=== PATIENT | male | born 1945 | race Caucasian/White ===

== ENCOUNTER → 2016-10-10 | Outpatient (CLI) | payer MEDICARE | END | disposition home or self-care (01) | LOC: LAB 15:24 | PROVIDERS: ATTEND Urology | DX: Z12.5 Encounter for screening for malignant neoplasm of prostate (principal); N40.0 Benign prostatic hyperplasia without lower urinary tract symptoms | CPT/HCPCS: G0103 ==

== ENCOUNTER 2019-08-23 08:15 | Emergency (ER) | payer MEDICARE ==
[~2019-08-23] VITALS: Ht 170.2 cm; Wt 87.8 kg
[2019-08-23] MEDS ORDERED: TETRACAINE 0.5% OPHTH SOLUTION 4ML BOTTLE. ONE (08:44)
[2019-08-23] MEDS ORDERED: FLUORESCEIN 1MG EYE STRIP. ONE (08:44)
[2019-08-23] MEDS ORDERED: FLUORESCEIN 1MG EYE STRIP. OU ONE (08:45)
[2019-08-23] MEDS ORDERED: TETRACAINE 0.5% OPHTH SOLUTION 4ML BOTTLE. OU ONE (08:45)
[2019-08-23] MEDS ORDERED: ERYT1OIN6 OP (08:53)
[2019-08-23] MEDS ORDERED: NAPR-695 PO (08:53)
--- NOTE | 2019-08-23 08:53 | PHYS DOC ---
Past History Past Medical History: Diabetes, Other Additional Past Medical Histor: melanoma Past Surgical History: Tonsillectomy, Other Additional Past Surgical Histo: skin cancer operation Smoking: Quit Greater Than 1 Year Alcohol Use: Occasionally Adult General Chief Complaint Chief Complaint: EYE PROBLEMS HPI HPI Patient is a 73-year-old male who presents with bilateral eye pain began approximately at midnight last night. 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 He states over the past that he was using an electrical welding shield and was not turning on appropriately. He began experiencing a bilateral eye pain left more than right woken from sleep early this morning. Currently he says that his vision is blurry or than normal. He has had what he describes as an "arc burn" approximately 2-3 times in the past. This is consistent with previous injuries. Denies any increase in lacrimation or purulent drainage. Mild photophobia no pain with extraocular movements. No diplopia. 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 Review of Systems Review of Systems Constitutional: Denies fever or chills Eyes: Reports bilateral eye redness, blurriness, photophobia and pain. Denies drainage. HENT: Denies nasal congestion or sore throat Respiratory: Denies cough or shortness of breath Cardiovascular: Denies chest pain or palpitations Neurologic: Denies headache, focal weakness or sensory changes Complete systems were reviewed and found to be within normal limits, except as documented in this note. Current Medications Current Medications Current Medications Medications (Trade) Dose Ordered Sig/Miley Start Time Stop Time Status Last Admin Dose Admin Erythromycin (Romycin) 0.25 inch 1X ONCE 08/23/19 09:00 08/23/19 09:01 UNV Fluorescein Sodium (Ful-Letty 1mg) 1 strip STK-MED ONCE 08/23/19 08:44 08/23/19 08:45 DC Tetracaine HCl (Tetracaine) 2 drop 1X ONCE 08/23/19 08:45 08/23/19 08:47 DC Allergies Allergies Allergies Coded Allergies Type Severity Reaction Last Updated Verified No Known Drug Allergies 08/23/19 No Physical Exam Physical Exam Constitutional: Well developed, well nourished, no acute distress, non-toxic appearance HENT: Normocephalic, atraumatic, oropharynx moist Eyes: PERRL, EOMI, conjunctival injection bilaterally, no discharge, no fluorescein uptake, no retained foreign body noted Cardiovascular: Heart rate normal, regular rhythm Lungs & Thorax: Bilateral breath sounds clear to auscultation, no wheezing Abdomen: Soft, no tenderness Neurologic: Alert and oriented X 3,no focal deficits noted Psychologic: Affect normal, judgment normal Current Patient Data Vital Signs Vital Signs Date Time Temp Pulse Resp B/P (MAP) Pulse Ox O2 Delivery O2 Flow Rate FiO2 08/23/19 08:32 98.0 58 18 152/68 (96) 97 Room Air EKG EKG [] Radiology/Procedures Radiology/Procedures [] Course & Med Decision Making Course & Med Decision Making Patient is 73-year-old male who presents to the ED with bilateral eye pain, b lurriness, and redness that began yesterday evening after he was welding with a failed welders mask. He has had multiple episodes of ultraviolet keratitis past and feels this is similar to those injuries today. Patient describes eye pain bilaterally left worse than right. Exam shows however visual acuity is better left than the right. Patient does describe some visual impairment at baseline with right eye correction being worse than left. Currently states that his vision is simply more blurry than normal. Ocular exam with fluorescein staining showed no evidence of abrasion, ulceration, punctate lesions over bilateral conjunctivitis presents and given patient's recent history suspect that he will be keratitis is most likely. We will discharge patient with prescription for erythromycin ointment applied OU as well as oral analgesics. 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 Patient stable for discharge with outpatient follow-up with PCP and op hthalmologist. Discussed findings and plan with patient, who acknowledges understanding and agreement. Dragon Disclaimer Dragon Disclaimer This electronic medical record was generated, in whole or in part, using a voice recognition dictation system. Departure Departure: Impression: Primary Impression: UV keratitis Disposition: 01 HOME, SELF-CARE Condition: STABLE Referrals: PCP,UNKNOWN (PCP) CHRYSTAL HAJI DO Patient Instructions: Eye - Ultraviolet Keratitis, [id number] Scripts Erythromycin Base (Erythromycin) 1 Gm Oint...g. 0.5 INCH OP Q6HRS for UV Keratitis for 5 Days, #1 TUBE Prov: JANE RASHEED DO 08/23/19 Naproxen (NAPROXEN) 375 Mg Tablet 1 TAB PO TID PRN for PAIN, #30 TAB 0 Refills with food Prov: JANE RASHEED DO 08/23/19 Slit Lamp Exam Procedure Indication: Bilateral eye pain Procedure: The patient was placed in the appropriate position. Anesthesia was tetracaine OU. Fluorescein staining was fluorescein strip. The [place] lamp exam findings were as follows: Mild conjunctivitis bilaterally, equal round reactive to light and accommodation bilaterally, pupils symmetric bilaterally, cornea clear, fluorescein staining without evidence of abrasion, ulceration, or punctate lesions. The patient tolerated the procedure well. Complications: None Problem Qualifiers Primary Impression: UV keratitis Laterality: bilateral Qualified Codes: H16.133 - Photokeratitis, bilateral JANE RASHEED DO Aug 23, 2019 08:53
[2019-08-23] MEDS ORDERED: ERYTHROMYCIN 0.5% OPHTH OINTMENT 1GM TUBE. OU ONE (09:00)
[2019-08-23 09:05] VITALS: BP 125/74
== END 2019-08-23 09:05 | disposition home or self-care (01) ==
LOC: ER 08:15
DX: H16.133 Photokeratitis, bilateral (principal); E11.9 Type 2 diabetes mellitus without complications; Z87.891 Personal history of nicotine dependence
CPT/HCPCS: 99283

== ENCOUNTER 2019-08-25 09:07 | Emergency (ER) | payer MEDICARE ==
[~2019-08-25] VITALS: Ht 170.2 cm; Wt 88.2 kg
[~2019-08-25 09:07] MED LIST: ERYT1OIN6 OP; NAPR-695 PO
[2019-08-25 09:19] VITALS: BP 135/60
--- NOTE | 2019-08-25 09:51 | RAD ---
Exam performed:3 views right shoulder Indication: Trauma Date of service: 08/25/2019. Comparison: None available Findings : AP radiographs of the shoulder in internal and external rotation as well as a Y-view reveal the osseous structures to be intact and well aligned. The joint space is well-preserved. The articular margins are smooth. There are surgical clips in the right lung apex Impression: No acute abnormality seen in the right shoulder. Electronically signed by: Radha Looney MD (08/25/2019 9:48 AM) [id number]
[2019-08-25] MEDS ORDERED: HYDR-3165 PO (10:04)
[2019-08-25] MEDS ORDERED: IBUPROFEN 800 MG TABLET. PO ONE (10:05)
[2019-08-25] MEDS ORDERED: IBUPROFEN 600 MG TABLET. PO ONE (10:15)
--- NOTE | 2019-08-25 12:40 | PHYS DOC ---
Past History Past Medical History: Cancer, Diabetes, High Cholesterol, Hypertension, Other Additional Past Medical Histor: melanoma Past Surgical History: Tonsillectomy, Other Additional Past Surgical Histo: skin cancer operation Smoking: Quit Greater Than 1 Year Additional Smoking Information: chewing tobacco daily Alcohol Use: None Adult General Chief Complaint Chief Complaint: SHOULDER INJURY HPI HPI Patient is a 73-year-old right-handed male who presents with right shoulder pain after falling yesterday. Patient fell from standing. Denies hitting his head, loss of consciousness, headache and midline neck pain. Denies chest wall or upper back pain. Pain is worse with palpation and range of motion. No other acute symptoms or complaints. No medications or therapies taken prior to ED arrival. [] Review of Systems Review of Systems Review of symptoms as per HPI. All other review of symptoms are negative. All other systems were reviewed and found to be within normal limits, except as documented in this note. Current Medications Current Medications Current Medications Medications (Trade) Dose Ordered Sig/Miley Start Time Stop Time Status Last Admin Dose Admin Ibuprofen (Motrin) 800 mg STK-MED ONCE 08/25/19 10:05 08/25/19 10:06 DC Allergies Allergies Allergies Coded Allergies Type Severity Reaction Last Updated Verified No Known Drug Allergies 08/23/19 No Physical Exam Physical Exam Constitutional: Well developed, well nourished, no acute distress, non-toxic appearance. [] HENT: Normocephalic, atraumatic, bilateral external ears normal, oropharynx moist, nose normal. [] Eyes: PERRLA, EOMI, conjunctiva normal, no discharge. [] Neck: Normal range of motion, no tenderness. [] Cardiovascular:Heart rate regular rhythm, no murmur. [ Lungs & Thorax: Bilateral breath sounds clear to auscultation [] Abdomen: Bowel sounds normal, soft, no tenderness. [] Neurologic: Alert and oriented X 3, normal motor function, normal sensory function, no focal deficits noted. [] Psychologic: Affect normal, judgement normal, mood normal. [] Current Patient Data Vital Signs Vital Signs Date Time Temp Pulse Resp B/P (MAP) Pulse Ox O2 Delivery O2 Flow Rate FiO2 08/25/19 09:19 76 18 135/60 (85) 96 EKG EKG [] Radiology/Procedures Radiology/Procedures [Right shoulder x-ray: No obvious displaced fracture per radiology report] Course & Med Decision Making Course & Med Decision Making Pertinent Labs and Imaging studies reviewed. (See chart for details) [Isolated right shoulder injury without fracture evident on imaging.] Maryon Disclaimer Analy Disclaimer This electronic medical record was generated, in whole or in part, using a voice recognition dictation system. Departure Departure: Impression: Primary Impression: Sprain of right shoulder Disposition: HOME, SELF-CARE Condition: STABLE Patient Instructions: Shoulder Sprain Additional Instructions: Take ibuprofen as needed for pain. Apply ice and avoid right arm use. Follow- up with your PCP in 7 to 10 days for reevaluation. Scripts Hydrocodone Bit/Acetaminophen (NORCO 5-325 TABLET) 1 Each Tablet 1 TAB PO PRN Q6HRS PRN for PAIN, #10 TAB 0 Refills Prov: JULIO CAMACHO DO 08/25/19 JULIO CAMACHO DO Aug 25, 2019 12:40
== END 2019-08-25 10:17 | disposition home or self-care (01) ==
LOC: ER 09:07
DX: S43.401A Unspecified sprain of right shoulder joint, initial encounter (principal); E11.9 Type 2 diabetes mellitus without complications; E78.00 Pure hypercholesterolemia, unspecified; I10 Essential (primary) hypertension; Z87.891 Personal history of nicotine dependence; W18.39XA Other fall on same level, initial encounter; Y93.89 Activity, other specified; Y92.89 Other specified places as the place of occurrence of the external cause; Y99.8 Other external cause status
CPT/HCPCS: 73030; 99283

== ENCOUNTER 2021-02-21 11:04 | Emergency (ER) | payer MEDICARE ==
[~2021-02-21] VITALS: Ht 170.2 cm; Wt 83.3 kg
[~2021-02-21 11:04] MED LIST changes: +HYDR-3165 PO
--- NOTE | 2021-02-21 11:31 | PHYS DOC ---
Past History Past Medical History: Cancer, Diabetes, High Cholesterol, Hypertension, Other Additional Past Medical Histor: melanoma Past Surgical History: Tonsillectomy, Other Additional Past Surgical Histo: skin cancer operation Smoking: Quit Greater Than 1 Year Alcohol Use: None General Adult EDM: Chief Complaint: FATIGUE HPI: HPI: 75-year-old male presents with body aches, fatigue, and chills for the last 3 days. He has had some mild shortness of breath "but not bad". He denies chest pain or diaphoresis. He was fully vaccinated against COVID-19. He says that he feels just like when he had influenza a couple years ago. Review of Systems: Review of Systems: Constitutional: Chills, fatigue, body aches. Eyes: Denies change in visual acuity HENT: Denies nasal congestion or sore throat Respiratory: shortness of breath Cardiovascular: Denies chest pain or edema GI: Denies abdominal pain, nausea, vomiting, bloody stools or diarrhea : Denies dysuria Musculoskeletal: Denies back pain or joint pain Integument: Denies rash Neurologic: Denies headache, focal weakness or sensory changes Endocrine: Denies polyuria or polydipsia Lymphatic: Denies swollen glands Psychiatric: Denies depression or anxiety Allergies: Allergies: Allergies Coded Allergies Type Severity Reaction Last Updated Verified No Known Drug Allergies 08/23/19 No Physical Exam: PE: Constitutional: Well developed, well nourished, no acute distress, non-toxic appearance. [] HENT: Normocephalic, atraumatic, bilateral external ears normal, oropharynx moist, no oral exudates, nose normal. [] Eyes: PERRLA, EOMI, conjunctiva normal, no discharge. [] Neck: Normal range of motion, no tenderness, supple, no stridor. [] Cardiovascular: Heart rate regular rhythm, no murmur [] Lungs & Thorax: Bilateral breath sounds clear to auscultation [] Abdomen: Bowel sounds normal, soft, no tenderness, no masses, no pulsatile masses. [] Skin: Warm, dry, no erythema, no rash. [] Back: No tenderness, no CVA tenderness. [] Extremities: No tenderness, no cyanosis, no clubbing, ROM intact, no edema. [] Neurologic: Alert and oriented X 3, normal motor function, normal sensory function, no focal deficits noted. [] Psychologic: Affect normal, judgement normal, mood normal. [] Current Patient Data: Vital Signs: Vital Signs Date Time Temp Pulse Resp B/P (MAP) Pulse Ox O2 Delivery O2 Flow Rate FiO2 02/21/21 11:12 98.6 57 16 137/63 96 Room Air EKG: EKG: Sinus rhythm rate 53, leftward axis, no ST elevation or depression, right bundle branch block. [] Radiology/Procedures: Radiology/Procedures: [] Impressions: XR CHEST 1V INDICATION: CP . COMPARISON STUDY: None. FINDINGS: Lungs: Normal lung volume. No pulmonary mass or consolidation. The tracheobronchial tree and hilar structures are normal. Pleura: No pleural effusion or pneumothorax. Heart and Mediastinum: The cardiomediastinal silhouette is normal. The great vessels of the thorax are normal. IMPRESSION: No acute cardiopulmonary process. Electronically signed by: Sushant Garsia MD (02/21/2021 11:45 AM) [id number] DICTATED AND SIGNED BY: SUSHANT GARSIA MD DATE: 02/21/21 1143 CC: JULIO KRAUSE DO; CHIDI ARAUJO MD ~MTH0 0 Heart Score: C/O Chest Pain: N/A Risk Factors: Risk Factors: DM, Current or recent (<one month) smoker, HTN, HLP, family history of CAD, obesity. Risk Scores: Score 0 - 3: 2.5% MACE over next 6 weeks - Discharge Home Score 4 - 6: 20.3% MACE over next 6 weeks - Admit for Clinical Observation Score 7 - 10: 72.7% MACE over next 6 weeks - Early Invasive Strategies Course & Med Decision Making: Course & Med Decision Making Pertinent Labs and Imaging studies reviewed. (See chart for details) The patient's EKG is negative for acute findings. His chest x-ray is negative for acute findings. His labs are unremarkable. His troponin is negative. His rapid influenza was negative. COVID-19 testing is pending. Suspect the patient could have breakthrough COVID-19 despite his vaccination. He was planning on getting a booster in the next 2 weeks. I told him he should refrain from an additional vaccination until he gets his COVID-19 results from today. He states verbal understanding. He is stable for discharge at this time. [] Dragon Disclaimer: Dragon Disclaimer: This electronic medical record was generated, in whole or in part, using a voice recognition dictation system. Departure Departure: Impression: Primary Impression: Suspected COVID-19 virus infection Disposition: 01 HOME / SELF CARE / HOMELESS Condition: STABLE Referrals: CHIDI ARAUJO MD (PCP) Additional Instructions: You have been tested for or diagnosed with COVID-19. It is an infection caused by a new type of coronavirus. COVID-19 will cause cold-like or mild flu symptoms in most. It can cause more severe symptoms like problems breathing in some. There is no treatment for COVID-19. The body will clear the infection over time. Self-care will help to ease discomfort. Steps to Take: Self-Care Rest as needed. Healthy habits may help you feel better. Steps include: Choose healthy foods including fruits and vegetables. Drink water throughout the day. Get plenty of sleep each night. If you smoke, try to quit. It may ease breathing. Avoid alcohol. Keep Others Healthy The virus can spread to others. Droplets are released every time you sneeze or cough. The droplets can get into the mouth, nose, or eyes of people near you and lead to infection. To lower the chances of spreading COVID-19 to others: Stay at home until your doctor has said it is safe to leave. If you tested positive this will mean staying isolated until both of the following are true: At least 7 days have passed since the start of illness. You are free of fever for at least 72 hours without the use of medicine. During this time: - Avoid public areas, events, or transportation. Do not return to work or school until your doctor has said it is safe to do so. - Call ahead if you need to go to a medical center. Let them know you may have COVID-19. It will help them guide you where to go. They may also ask you to wear a facemask when you come to the office. - If you call for emergency medical services, let them know you may have COVID- 19. While at home: - Try to avoid close contact with others. Stay about 6 feet away. - If possible, spend most of your time in a separate room from others. - Use a face mask if you will be in close contact with others such as sharing a room or vehicle. - Have someone wipe down common surfaces in the home. Use household tool machine setup operator every day on areas like doorknobs, counters, or sinks. - Cough or sneeze into a tissue. Throw the tissue away right after use. If a tissue is not available, cough or sneeze into your elbow. - Wash your hands often. Wash them after sneezing or coughing. Use soap and w ater and wash for at least 20 seconds. Alcohol based hand laboratory equipment cleaner can be used if soap and water is not available. - Do not prepare food for others. Avoid sharing personal items like forks, spoons, or toothbrushes. - Avoid close contact with pets while you are sick. There is no evidence of the virus passing to pets. This is a safety step until more is known about this virus. Isolation can be frustrating. Social interaction can help. Keep in touch with friends and family through phone and tech options. You can still interact with others in your home, just keep a safe distance of about 6 feet. Follow-up: Your doctors office will check in with you to see if there are any changes in your health. You may be asked to keep track of symptoms to share with them. They will also let you know when you are clear to be in public again. Problems to Look Out For: Contact your doctor if your recovery is not going as you expect. Get emergency care if you have problems such as: - Trouble breathing - Nonstop chest pain or pressure - Changes in awareness, confusion, or problems waking - Lips or face have bluish color - Worsening of symptoms If you think you have an emergency, call for emergency medical services right away. As taken from [facility] JULIO KRAUSE DO Feb 21, 2021 11:31
--- NOTE | 2021-02-21 11:45 | EKG ---
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
[2021-02-21 11:46] LABS: BASO % 0 % (0-3); EOS # 0.1 x10^3/uL (0.0-0.7); EOS % 1 % (0-3); HEMATOCRIT 41.3 % (39.0-53.0); LYMPH # 1.2 x10^3/uL (1.0-4.8); LYMPH % 11 % (24-48); MEAN CORPUSCULAR HEMOGLOBIN 31 pg (25-35); MEAN CORPUSCULAR HGB CONC 34 g/dL (31-37); MEAN CORPUSCULAR VOLUME 91 fL (79-100); MONO # 1.7 x10^3/uL (0.0-1.1); MONO % 16 % (0-9); NEUT # 7.3 x10^3uL (1.8-7.7); NEUT % 72 % (31-73); PLATELET COUNT 196 x10^3/uL (140-400); RED BLOOD COUNT 4.55 x10^6/uL (4.30-5.70); RED CELL DISTRIBUTION WIDTH 14.3 % (11.5-14.5); WHITE BLOOD COUNT 10.2 x10^3/uL (4.0-11.0)
--- NOTE | 2021-02-21 11:47 | RAD ---
XR CHEST 1V INDICATION: CP . COMPARISON STUDY: None. FINDINGS: Lungs: Normal lung volume. No pulmonary mass or consolidation. The tracheobronchial tree and hilar st ructures are normal. Pleura: No pleural effusion or pneumothorax. Heart and Mediastinum: The cardiomediastinal silhouette is normal. The great vessels of the thorax ar e normal. IMPRESSION: No acute cardiopulmonary process. Electronically signed by: Stan Streeter MD (02/21/2021 11:45 AM) [id number]
[2021-02-21 11:56] LABS: CALCIUM 8.2 mg/dL (8.5-10.1); GFR 72.5; POTASSIUM 4.9 mmol/L (3.5-5.1)
[2021-02-21 12:02] LABS: ALBUMIN 3.2 g/dL (3.4-5.0); ALBUMIN/GLOBULIN RATIO 1.1 (1.0-1.7); TOTAL BILIRUBIN 0.7 mg/dL (0.2-1.0); TOTAL PROTEIN 6.2 g/dL (6.4-8.2)
[2021-02-21 12:08] LABS: INFLUENZA A PATIENT NEGATIVE (NEGATIVE); INFLUENZA B PATIENT NEGATIVE (NEGATIVE)
[2021-02-21] MEDS ORDERED: DEXA4TAB63 PO (12:28)
[2021-02-21 12:33] VITALS: BP 135/66
[2021-02-21] MEDS ORDERED: CONTRAST GIVEN. MC PRN (12:45)
[2021-02-21] MEDS ORDERED: IOHEXOL 300 MG/ML 75 ML VIAL. IV ONE (12:45)
[2021-02-26] MEDS ORDERED: PRED5TAB PO (10:07)
[2021-02-26] MEDS ORDERED: DOXY100T PO (10:07)
== END 2021-02-21 12:40 | disposition home or self-care (01) ==
LOC: ER 11:04
DX: R53.83 Other fatigue (principal); R06.02 Shortness of breath; M79.10 Myalgia, unspecified site; E11.9 Type 2 diabetes mellitus without complications; E78.00 Pure hypercholesterolemia, unspecified; I10 Essential (primary) hypertension; Z87.891 Personal history of nicotine dependence; Z20.822 Contact with and (suspected) exposure to COVID-19
CPT/HCPCS: 71045; 80053; 84484; 85025; 87804; 93005; 99285; C9803; U0003

== ENCOUNTER 2021-02-22 18:20 | Emergency (ER) | payer MEDICARE ==
[~2021-02-22] VITALS: Ht 170.2 cm; Wt 85.1 kg
[~2021-02-22 18:20] MED LIST changes: +DEXA4TAB63 PO
[2021-02-22] MEDS ORDERED: ACETAMINOPHEN 325 MG TABLET PO ONE (18:45)
--- NOTE | 2021-02-22 18:49 | PHYS DOC ---
Past History Past Medical History: Cancer, Diabetes, High Cholesterol, Hypertension, Other Additional Past Medical Histor: melanoma (QUENTIN PETERSON APRN) Past Surgical History: Tonsillectomy, Other Additional Past Surgical Histo: skin cancer operation (QUENTIN PETERSON APRN) Smoking: Quit Greater Than 1 Year Alcohol Use: None (QUENTIN PETERSON APRN) General Adult EDM: Chief Complaint: GENERALIZED BODY ACHES HPI: HPI: Patient is a 75-year-old male who presents to the ER for generalized weakness and fatigue, chills and sweats. Patient reports mild sore throat with a history of strep. Patient was seen in the ER yesterday for similar complaints and had blood work done, chest x-ray, Covid and flu testing. Patient's work-up in the ER yesterday was unremarkable, negative for Covid, negative for flu. Patient is returning to the ER today because he reports no improvement in his symptoms. Patient is a type II diabetic and takes insulin. His vital signs are stable. His temperature is 99.3. Patient denies loss of taste or smell, cough, shortness of breath, fevers, nausea, vomiting. (QUENTIN PETERSON APRN) Review of Systems: Review of Systems: 14 body systems of the review of systems have been reviewed. See HPI for pertinent positive and negative responses, otherwise all other systems are negative, nonpertinent or noncontributory (QUENTIN PETERSON APRN) Current Medications: Current Meds: Current Medications Medications (Trade) Dose Ordered Sig/Miley Start Time Stop Time Status Last Admin Dose Admin Acetaminophen (Tylenol) 650 mg 1X ONCE 02/22/21 18:45 02/22/21 18:46 UNV (QUENTIN PETERSON APRN) Allergies: Allergies: Allergies Coded Allergies Type Severity Reaction Last Updated Verified No Known Drug Allergies 08/23/19 No (QUENTIN PETERSON APRN) Physical Exam: PE: Constitutional: Well developed, well nourished, no acute distress, non-toxic appearance. [] HENT: Normocephalic, atraumatic, bilateral external ears normal, oropharynx moist, no oral exudates, erythematous oropharynx, no tonsillar enlargement, uvula midline, no trismus, nose normal. [] Eyes: PERRL, EOMI, conjunctiva normal, no discharge. [] Neck: Normal range of motion, no stridor Cardiovascular:Heart rate regular rhythm, no murmur [] Lungs & Thorax: Bilateral breath sounds clear to auscultation [] Abdomen: Bowel sounds normal, soft, no tenderness, no masses, no pulsatile masses. [] Skin: Warm, dry, no erythema, no rash. [] Back: Normal range of motion Extremities: No tenderness, no cyanosis, no clubbing, ROM intact, no edema. [] Neurologic: Alert and oriented X 3, normal motor function, normal sensory function, no focal deficits noted. [] Psychologic: Affect normal, judgement normal, mood normal. [] (QUENTIN PETERSON APRN) EKG: EKG: [] (QUENTIN PETRESON APRN) Radiology/Procedures: Radiology/Procedures: [] (QUENTIN PETERSON APRN) Heart Score: C/O Chest Pain: No Risk Factors: Risk Factors: DM, Current or recent (<one month) smoker, HTN, HLP, family history of CAD, obesity. Risk Scores: Score 0 - 3: 2.5% MACE over next 6 weeks - Discharge Home Score 4 - 6: 20.3% MACE over next 6 weeks - Admit for Clinical Observation Score 7 - 10: 72.7% MACE over next 6 weeks - Early Invasive Strategies (QUENTIN PETERSON APRN) Course & Med Decision Making: Course & Med Decision Making Pertinent Labs and Imaging studies reviewed. (See chart for details) Patient is a 75-year-old male being seen in the ER for generalized weakness/fatigue, chills, sweats. Patient had a negative work-up in this ER yesterday which consisted of blood work, Covid testing, flu testing, urinalysis, chest x-ray. Patient returns because he has not noticed any improvement in his symptoms since being seen in the ER yesterday. Work-up in the ER consisted of blood work, Covid testing, flu testing, strep testing. Patient treated with Tylenol. I discussed patients case with JUANJO Stockton and she will assume patient care at this time. Care transferred 1900. (QUENTIN PETERSON APRN) Course & Med Decision Making Insulin administration was discussed with the patient. He states that typically he calculates his insulin dose with his pump and administers. He states he has not done that the past couple days. Insulin was offered to the patient, but he elected to use his pump. Patient used his pump and administered 2.45 units to himself in the emergency d epartment according to his calculator. He states he would very much like to go home. IV fluids were offered to aid in correcting electrolyte imbalances, initially patient refused. After some discussion, patient agreed to receive a liter bolus prior to discharge. (IESHA VANG) Dragon Disclaimer: Dragon Disclaimer: This electronic medical record was generated, in whole or in part, using a voice recognition dictation system. (QUENTIN PETERSON APRN) Departure Departure: Impression: Primary Impression: Hyperglycemia Disposition: HOME / SELF CARE / HOMELESS Condition: STABLE Referrals: CHIDI ARAUJO MD (PCP) Patient Instructions: Hyperglycemia, [id number] Additional Instructions: Please continue to monitor blood sugar diligently at home. Administer insulin via pump as needed. Return to emergency department for worsening of symptoms. Attending Signature Attending Signature I have participated in the care of this patient and I have reviewed and agree with all pertinent clinical information above including history, exam, and recommendations. (JOSE VICTORIA MD) QUENTIN PETERSON APRN Feb 22, 2021 18:48 IESHA VANG Feb 22, 2021 21:17 JOSE VICTORIA MD Feb 24, 2021 07:13
[2021-02-22 19:51] LABS: INFLUENZA A PATIENT NEGATIVE (NEGATIVE); INFLUENZA B PATIENT NEGATIVE (NEGATIVE)
[2021-02-22 20:10] LABS: BASO % 0 % (0-3); EOS % 0 % (0-3); HEMATOCRIT 40.8 % (39.0-53.0); HEMOGLOBIN 13.7 g/dL (13.0-17.5); LYMPH # 0.4 x10^3/uL (1.0-4.8); LYMPH % 4 % (24-48); MEAN CORPUSCULAR HEMOGLOBIN 30 pg (25-35); MEAN CORPUSCULAR HGB CONC 34 g/dL (31-37); MEAN CORPUSCULAR VOLUME 89 fL (79-100); MONO # 0.7 x10^3/uL (0.0-1.1); MONO % 7 % (0-9); NEUT # 9.5 x10^3uL (1.8-7.7); NEUT % 90 % (31-73); PLATELET COUNT 219 x10^3/uL (140-400); RED BLOOD COUNT 4.56 x10^6/uL (4.30-5.70); RED CELL DISTRIBUTION WIDTH 13.8 % (11.5-14.5); WHITE BLOOD COUNT 10.6 x10^3/uL (4.0-11.0)
[2021-02-22 20:18] LABS: CALCIUM 8.4 mg/dL (8.5-10.1); CREATININE 1.1 mg/dL (0.7-1.3); GFR 64.9; POTASSIUM 5.5 mmol/L (3.5-5.1)
[2021-02-22 20:23] LABS: ALBUMIN 3.2 g/dL (3.4-5.0); ALBUMIN/GLOBULIN RATIO 0.9 (1.0-1.7); TOTAL BILIRUBIN 0.7 mg/dL (0.2-1.0); TOTAL PROTEIN 6.6 g/dL (6.4-8.2)
[2021-02-22 20:28] LABS: BILIRUBIN,URINE NEG (NEG); CLARITY,URINE CLEAR; COLOR,URINE YELLOW; GLUCOSE,URINE >=1000 mg/dL (NEG)
[2021-02-22 20:29] LABS: BACTERIA,URINE 0 /HPF (0-FEW); NITRITE,URINE NEG (NEG); RBC,URINE RARE /HPF (0-2); SQUAMOUS EPITHELIAL CELL,UR OCC /LPF; WBC,URINE RARE /HPF (0-4)
[2021-02-22] MEDS ORDERED: IV NORMAL SALINE 500ML 500 ML IV ONE (21:30)
[2021-02-22 21:34] VITALS: BP 143/63
[2021-02-22] MEDS ORDERED: IV NORMAL SALINE 1,000ML 1,000 ML IV ONE (21:45)
[2021-02-23] MEDS ORDERED: INSULIN LISPRO 300 UNITS/3 ML VIAL. SQ SCH (07:30)
[2021-02-26] MEDS ORDERED: PRED5TAB PO (10:07)
[2021-02-26] MEDS ORDERED: DOXY100T PO (10:07)
== END 2021-02-22 22:20 | disposition home or self-care (01) ==
LOC: ER 18:20
DX: E11.65 Type 2 diabetes mellitus with hyperglycemia (principal); E78.5 Hyperlipidemia, unspecified; I10 Essential (primary) hypertension; Z87.891 Personal history of nicotine dependence; Z20.822 Contact with and (suspected) exposure to COVID-19
CPT/HCPCS: 80053; 81001; 84484; 85025; 87070; 87804; 87880; 96360; 99285; C9803; J7030; U0003

== ENCOUNTER 2021-02-23 18:00 | Inpatient (IN) | payer MEDICARE ==
[~2021-02-23] VITALS: Ht 170.2 cm; Wt 84.5 kg
[2021-02-23 18:03] VITALS: BP 139/63
[2021-02-23] MEDS ORDERED: HYDROcodone/APAP 5/325MG 1 TAB TABLET PO PRN (19:00)
[2021-02-23] MEDS ORDERED: ACETAMINOPHEN 325 MG TABLET PO PRN (19:30)
[2021-02-23] MEDS: IV RINGERS SOLUTION,LACTATED 1,000 ML IV SCH (20:00)
[2021-02-23 20:15] LABS: BASO % 0 % (0-3); EOS % 0 % (0-3); HEMATOCRIT 36.2 % (39.0-53.0); HEMOGLOBIN 12.1 g/dL (13.0-17.5); LYMPH # 0.8 x10^3/uL (1.0-4.8); LYMPH % 8 % (24-48); MEAN CORPUSCULAR HEMOGLOBIN 30 pg (25-35); MEAN CORPUSCULAR HGB CONC 34 g/dL (31-37); MEAN CORPUSCULAR VOLUME 89 fL (79-100); MONO # 1.6 x10^3/uL (0.0-1.1); MONO % 18 % (0-9); NEUT # 6.6 x10^3uL (1.8-7.7); NEUT % 73 % (31-73); PLATELET COUNT 221 x10^3/uL (140-400); RED BLOOD COUNT 4.06 x10^6/uL (4.30-5.70); RED CELL DISTRIBUTION WIDTH 13.8 % (11.5-14.5)
[2021-02-23 20:30] LABS: C REACTIVE PROTEIN 123.8 mg/L (0-3.3); CALCIUM 7.7 mg/dL (8.5-10.1); GFR 72.5; POTASSIUM 4.2 mmol/L (3.5-5.1)
[2021-02-23] MEDS: DEXAMETHASONE 4 MG TABLET PO SCH (21:21)
[2021-02-23] MEDS: ENOXAPARIN 40 MG/0.4 ML SYRINGE. SQ SCH (21:22)
[2021-02-23 23:00] VITALS: BP 106/54
[2021-02-24] MEDS: PIPERACILLIN/TAZOBACTAM 3.375 GM in IV NORMAL SALINE 50ML 50 ML IV SCH ×4 (00:31→17:22)
[2021-02-24] MEDS: ERYTHROMYCIN 0.5% OPHTH OINTMENT 1GM TUBE. OU SCH ×4 (00:31→18:00)
[2021-02-24] MEDS ORDERED: TAMS0.4C97 PO (01:06)
[2021-02-24] MEDS ORDERED: FINA5TAB4 PO (01:06)
[2021-02-24] MEDS ORDERED: ATOR40TA59 PO (01:06)
[2021-02-24] MEDS ORDERED: LISI10TA16 PO (01:06)
[2021-02-24] MEDS ORDERED: ESCITALOPRAM OX20 MG PO (01:06)
--- NOTE | 2021-02-24 01:17 | NUR ---
The patient, JANE JACKMAN, 75 y/o, M admitted by CHIDI ARAUJO MD, was given written information regarding hospital policies, unit procedures and contact persons. Valuables were checked and vital signs noted. PT oriented to unit. Reviewed with PT and his (via telephone conversation) his PMH, PSH, SH, FH and medications. PT takes all medications at HS.
[2021-02-24 01:33] LABS: CLARITY,URINE CLEAR; COLOR,URINE YELLOW; GLUCOSE,URINE 250 mg/dL (NEG)
[2021-02-24 01:34] LABS: BILIRUBIN,URINE NEG (NEG); NITRITE,URINE NEG (NEG)
[2021-02-24 01:35] LABS: BACTERIA,URINE 0 /HPF (0-FEW); RBC,URINE 0 /HPF (0-2); WBC,URINE 0 /HPF (0-4)
--- NOTE | 2021-02-24 05:31 | EKG ---
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
[2021-02-24 05:59] VITALS: BP 131/67
[2021-02-24] MEDS: IV RINGERS SOLUTION,LACTATED 1,000 ML IV SCH ×2 (06:26→20:28)
[2021-02-24] MEDS ORDERED: BENZOCAINE/MENTHOL LOZNGE 18'S BOX. PO PRN (08:30)
--- NOTE | 2021-02-24 09:47 | RAD ---
Examination: CT chest without contrast HISTORY: History of shortness of breath, chills, fever COMPARISON: None TECHNIQUE: Axial CT images of chest were performed without contrast. Coronal and sagittal reformats a re performed Exposure: One or more of the following individualized dose reduction techniques were utilized for thi s examination: 1. Automated exposure control 2. Adjustment of the mA and/or kV according to patient size 3. Use of iterative reconstruction technique FINDINGS: The central airways are patent. Mild cardiomegaly. Coronary artery calcifications. Small bilateral pl eural effusions. There is a 8 mm nodule identified in the left lower lobe of the lung. There is a 7 m m nodule identified in the right lower lobe of the lung. There is focal airspace opacity or nodule id entified in the right lower lobe of the lung measuring 1.7 cm. Mild infiltrate or consolidation right lower lobe lung. The visualized noncontrasted liver, spleen grossly appears unremarkable. Moderate d egenerative changes thoracic spine. IMPRESSION: 1. 1.7 cm focal airspace opacity or nodule identified in the right lower lobe of the lung could be p neumonia or neoplasm. Consider further evaluation with PET/CT or non-contrast chest CT at 3-6 months. If the nodules are stable at time of repeat CT, then future CT at 18-24 months (from today's scan) i s recommended. 2. 7 mm nodule identified in the right lower lobe of the lung and 8 mm nodule identified in the left lower lobe of the lung. Follow-up per Fleischner Society guidelines 3. Small bilateral pleural effusions. 4. Coronary artery calcifications. Electronically signed by: Bridger Wright MD (02/24/2021 9:45 AM) [id number]
[2021-02-24 10:22] VITALS: BP 138/61
[2021-02-24] MEDS: DEXAMETHASONE 4 MG TABLET PO SCH ×2 (10:34→20:29)
[2021-02-24] MEDS ORDERED: DEXTROSE 50% 25 GM / 50ML DISP.SYRIN. IV PRN (12:15)
[2021-02-24] MEDS: INSULIN LISPRO 300 UNITS/3 ML VIAL. SQ SCH ×3 (12:15→17:23)
--- NOTE | 2021-02-24 12:19 | NUR ---
PATIENT HAS OWN INSULIN PUMP TO RIGHT UPPER ARM, PATIENT REPORTED PT GAVE HIMSELF INSULIN OF 8 UNITS.
[2021-02-24 15:30] VITALS: BP 146/70
--- NOTE | 2021-02-24 15:49 | HP ---
HISTORY OF PRESENT ILLNESS: This gentleman came in, had been through the Emergency Room twice for respiratory problems of cough, fever and chills. He has gotten progressively worse when he came into the office, his temperature was 102.6. He had marked rigors and further testing that was done later at the hospital by CAT scan showed the gentleman had a pneumonia. He was admitted for IV antibiotic therapy. He technically has sepsis and monitoring carefully. PAST MEDICAL HISTORY: Had problems with coronary artery disease and other respiratory type diseases. ALLERGIES: No known allergies. FAMILY HISTORY: Not remarkable. SOCIAL HISTORY: The patient has about 20-30 pack year history of smoking, although he has not smoked for several years. Denies alcohol or drug use. REVIEW OF SYSTEMS: The patient does have a slight headache, mild nausea, no vomiting, no visual changes. Does have shortness of breath, coughing, fever, chills and rigors as noted. The patient has no problem with his bowels or bladder. Neurologically, no deficits. PHYSICAL EXAMINATION: GENERAL: On exam, this is a critically ill white male in moderate amount of distress, marked triggers are noted. VITAL SIGNS: Blood pressure 150/80, pulse 110, respiratory rate 26, temperature 102.6, 92% on room air. The patient otherwise is alert, but somewhat lethargic. HEENT: Atraumatic, normocephalic. Eyes: PERRLA. Mouth and throat normal. Dry mucous membranes. NECK: Supple. LUNGS: Diminished throughout, poor movement of air. CARDIOVASCULAR: Tachycardic. ABDOMEN: Soft, nontender. No hepatosplenomegaly. EXTREMITIES: No clubbing, cyanosis, nor edema. NEUROLOGIC: The patient alert and oriented x3. CT scan shows pneumonia, but more important clinically this patient is critically ill. IMPRESSION: Bilateral lobe pneumonia. SARS-COVID negative. Acute respiratory distress. The patient will be admitted for IV fluids, IV antibiotic therapy and close monitoring for sepsis. EMILY DR: Orly TID: [id number]
[2021-02-24 20:11] VITALS: BP 142/67
--- NOTE | 2021-02-24 20:18 | PN ---
DATE: 02/24/2021 SUBJECTIVE: A 75-year-old male who has a history of pneumonia, sepsis, temperature of 102.9. The patient is still very weak this morning, although he is feeling somewhat better overall and continues to make fairly good progress with IV antibiotic therapy including Zosyn and will be started on azithromycin. The patient otherwise is still fairly weak. OBJECTIVE: VITAL SIGNS: Blood pressure 138/60, respiratory 20, pulse 70, afebrile. GENERAL: The patient is alert and oriented, 95% on room air. The patient is still very difficult in speech. LUNGS: Diminished throughout, poor movement of air. CARDIOVASCULAR: Regular sinus rhythm, S1, S2, without murmur, rub, thrill, or extra heart sound. ABDOMEN: Soft, nontender. Continue to monitor the patient accordingly, make further evaluation on him as indicated. IMPRESSION: Pneumonia of unspecified etiology, community-acquired, COVID negative. Anemia of chronic disease, type 2 diabetes. PLAN: As above. Continue to monitor him accordingly and make further adjustments on his meds as indicated. JACOB DR: Orly TID: [id number]
[2021-02-24] MEDS: ATORVASTATIN CALCIUM 20 MG TABLET PO SCH (20:29)
[2021-02-24] MEDS: ENOXAPARIN 40 MG/0.4 ML SYRINGE. SQ SCH (20:29)
[2021-02-24] MEDS: LISINOPRIL 10 MG TABLET PO SCH (20:29)
[2021-02-24] MEDS: FINASTERIDE 5 MG TABLET. PO SCH (20:30)
[2021-02-24] MEDS: TAMSULOSIN 0.4 MG CAP.ER.24H. PO SCH (20:30)
[2021-02-24] MEDS: CITALOPRAM 20 MG TABLET. PO SCH (20:30)
[2021-02-24 22:58] VITALS: BP 131/68
[2021-02-25] MEDS: PIPERACILLIN/TAZOBACTAM 3.375 GM in IV NORMAL SALINE 50ML 50 ML IV SCH ×4 (00:10→17:31)
[2021-02-25] MEDS: ERYTHROMYCIN 0.5% OPHTH OINTMENT 1GM TUBE. OU SCH ×4 (00:11→16:59)
[2021-02-25] MEDS: IV RINGERS SOLUTION,LACTATED 1,000 ML IV SCH (01:00)
[2021-02-25 05:08] LABS: HEMOGLOBIN A1C 9.7 % (4.8-5.6)
[2021-02-25 05:48] VITALS: BP 132/74
[2021-02-25] MEDS: INSULIN LISPRO 300 UNITS/3 ML VIAL. SQ SCH ×3 (08:00→16:58)
[2021-02-25] MEDS: DEXAMETHASONE 4 MG TABLET PO SCH (08:17)
[2021-02-25] MEDS ORDERED: LOPERAMIDE 2 MG CAPSULE PO PRN (09:45)
[2021-02-25] MEDS ORDERED: LOPERAMIDE 2 MG/15 ML ORAL SUSP. PEG PRN (09:45)
[2021-02-25] MEDS: LACTOBACILLUS RHAMNOSUS GG 1 CAPSULE. PO SCH ×2 (10:20→20:11)
[2021-02-25 11:55] VITALS: BP 155/77
--- NOTE | 2021-02-25 12:28 | NUR ---
PT REPORTING THAT HE GIVES HIMSELF INSULIN THROUGH HIS PUMP AND HAS REFUSED OUR INSULIN. PT IS CLOSELY FOLLOWING THE SLIDING SCALE INSULIN PLAN. PT ALSO REFUSED HIS LACTATED RINGERS AND EYE OINTMENT, STATING HE DOESN'T KNOW WHY HE'S GETTING IT. PT WANTING TO GO HOME AND PT CONFUSED TO WHY HE'S HERE.
[2021-02-25 15:34] VITALS: BP 137/72
[2021-02-25 19:23] VITALS: BP 153/62
[2021-02-25] MEDS: CITALOPRAM 20 MG TABLET. PO SCH (20:11)
[2021-02-25] MEDS: FINASTERIDE 5 MG TABLET. PO SCH (20:11)
[2021-02-25] MEDS: LISINOPRIL 10 MG TABLET PO SCH (20:11)
[2021-02-25] MEDS: TAMSULOSIN 0.4 MG CAP.ER.24H. PO SCH (20:11)
[2021-02-25] MEDS: ENOXAPARIN 40 MG/0.4 ML SYRINGE. SQ SCH (20:11)
[2021-02-25] MEDS: ATORVASTATIN CALCIUM 20 MG TABLET PO SCH (20:12)
--- NOTE | 2021-02-25 22:37 | PN ---
SUBJECTIVE: A 75-year-old gentleman in with bilateral lobe pneumonia. The patient is resting fairly comfortably, making fairly good progress overall. The patient is still somewhat weak, but much improved from where he was yesterday. He has difficulty in breathing. OBJECTIVE: VITAL SIGNS: Blood pressure 150/77, respirations 18, pulse 45, afebrile, on room air 95. The patient is continued on IV antibiotic therapy. CT of the chest did demonstrate bilateral effusions with multiple nodules as well as pneumonic process. The patient otherwise is making steady progress. IMPRESSION: Pneumonia of unspecified etiology, community acquired, non-COVID; acute exacerbation of chronic obstructive pulmonary disease. PLAN: The patient continued to be monitored. Continue on present drug regimen. MINE/TRINA DR: Orly TID: [id number]
[2021-02-25 23:30] VITALS: BP 127/60
[2021-02-26] MEDS: PIPERACILLIN/TAZOBACTAM 3.375 GM in IV NORMAL SALINE 50ML 50 ML IV SCH ×3 (00:28→09:27)
[2021-02-26 05:56] VITALS: BP 133/62
[2021-02-26] MEDS ORDERED: predniSONE 20 MG TABLET PO SCH (09:00)
[2021-02-26] MEDS: LACTOBACILLUS RHAMNOSUS GG 1 CAPSULE. PO SCH (09:28)
[2021-02-26] MEDS ORDERED: DOXY100T PO (10:07)
[2021-02-26] MEDS ORDERED: PRED5TAB PO (10:07)
--- NOTE | 2021-02-26 12:04 | NUR ---
discharge note pt discharged at 1105 via ambulation accompanied by self . pt given written and verbal instructions given with verbal statement of understanding received.
--- NOTE | 2021-03-13 14:48 | DS ---
DATE OF DISCHARGE: 02/26/2021 HOSPITAL COURSE: A 75-year-old male came in through the Emergency Room. He has been there twice in with a problem of cough, fever and chills. He had gotten progressively worse. Initially came to the office, was seen and taken to the ER. He had a ____ 102.6 with marked rigors. He had, per CAT scan, pneumonia and he was treated for bilateral lobe pneumonia. His COVID was negative, but he was in acute respiratory distress. He was given per protocol for sepsis and made excellent progress. His sugars were elevated because of the use of steroids. His A1c was 9.7. His C-reactive protein was 123. In any case, the patient made excellent progress. His CT chest, as noted, did show an airspace opacity nodule, which needed to be followed up in 3-6 months and he was informed of such to follow up for this very important element there. In any case, the patient made excellent progress and he was discharged home, follow up as an outpatient. He will continue on oral antibiotics and follow up on that CT scan, also his blood sugars would need to be monitored as well. The patient otherwise will continue to be monitored as an outpatient. IMPRESSION: Bilateral lobe pneumonia, community acquired; moderate protein malnutrition; hyperglycemia; type 2 diabetes, accentuated with the use of steroids; acute respiratory failure; negative COVID; acute exacerbation of chronic obstructive pulmonary disease from an infective process. MINE/FER/SONIA DR: Orly TID: [id number]
== END 2021-02-26 11:58 | disposition home or self-care (01) | DRG 871 ==
LOC: 1 SOUTH 18:00
PROVIDERS: ADMIT Family Medicine; ATTEND Family Medicine
DX: A41.9 Sepsis, unspecified organism (principal); J18.9 Pneumonia, unspecified organism; J44.0 Chronic obstructive pulmonary disease with (acute) lower respiratory infection; J44.1 Chronic obstructive pulmonary disease with (acute) exacerbation; D63.8 Anemia in other chronic diseases classified elsewhere; E11.9 Type 2 diabetes mellitus without complications; R06.03 Acute respiratory distress; I25.10 Atherosclerotic heart disease of native coronary artery without angina pectoris; Z87.891 Personal history of nicotine dependence; Z20.822 Contact with and (suspected) exposure to COVID-19
CPT/HCPCS: 36415; 71250; 80048; 81001; 82550; 82947; 83036; 84484; 85025; 85379; 86140; 87040; 93005; J1650; J1815; J2543; J7120; J7512; J8540; 97116

== ENCOUNTER 2021-07-19 15:21 | Emergency (ER) | payer MEDICARE ==
[~2021-07-19] VITALS: Ht 170.2 cm; Wt 80.0 kg
[~2021-07-19 15:21] MED LIST changes: +ATOR40TA59 PO; +DOXY100T PO; +ESCITALOPRAM OX20 MG PO; +FINA5TAB4 PO; +LISI10TA16 PO; +PRED5TAB PO; +TAMS0.4C97 PO
[2021-07-19 15:56] VITALS: BP 127/72
[2021-07-19] MEDS ORDERED: LIDOCAINE 2% 20 ML VIAL. IJ ONE (16:00)
[2021-07-19] MEDS ORDERED: DIPHTH,PERTUSS(ACELL),TET TOX 0.5 ML DISP.SYRIN. VAX IM ONE (16:00)
--- NOTE | 2021-07-19 16:16 | RAD ---
Right index finger x-rays 3 views HISTORY: Laceration of the index finger. FINDINGS: On the lateral view there is overlapping of the fingers somewhat limiting visualization of the separate bony and soft tissues. In light of this there is an apparent laceration of the distal se cond finger with acute traumatic open fracture of the distal phalangeal trauma with avulsion and abse nce of the distal phalangeal tuft, presumably avulsed away from the finger and not on the images. No dislocation. 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 IMPRESSION: Acute traumatic open fracture with avulsion of the second digit distal phalangeal tuft. Electronically signed by: Marvin Tyson MD (07/19/2021 4:14 PM) ROSLYN
--- NOTE | 2021-07-19 16:54 | PHYS DOC ---
Past History Past Medical History: Cancer, Diabetes, High Cholesterol, Hypertension, Other Additional Past Medical Histor: melanoma (IESHA VANG) Past Surgical History: Tonsillectomy, Other Additional Past Surgical Histo: skin cancer operation (IESHA VANG) Smoking: Quit Greater Than 1 Year Alcohol Use: Occasionally Drug Use: None (IESHA VANG) General Adult EDM: Chief Complaint: PARTIAL AMPUTATION/AVULSION HPI: HPI: Patient is a 75 year old male who presents with injury to his right index fingertip. Patient states he was using a brand-new table saw, when he cut the end of his finger off. Patient was unable to find the end of his finger. He reports 10/10 pain nonradiating. Patient has no other complaints at this time. (IESHA VANG) Review of Systems: Review of Systems: ROS negative or noncontributory except as mentioned in HPI. (IESHA VANG) Current Medications: Current Meds: Current Medications Medications (Trade) Dose Ordered Sig/Miley Start Time Stop Time Status Last Admin Dose Admin Diphtheria/ Tetanus/Acell Pertussis (Boostrix) 0.5 ml ONCE ONCE 07/19/21 16:00 07/19/21 16:19 DC Lidocaine HCl (Lidocaine 2%) 20 ml 1X ONCE 07/19/21 16:00 07/19/21 16:19 DC (IESHA VANG) Allergies: Allergies: Allergies Coded Allergies Type Severity Reaction Last Updated Verified No Known Drug Allergies 08/23/19 No (IESHA VANG) Physical Exam: PE: Constitutional: Well developed, well nourished, non-toxic appearance. HENT: Normocephalic, atraumatic, bilateral external ears normal, nose normal. Eyes: EOMI, conjunctiva normal, no discharge. Skin: Warm, dry, no erythema, no rash. Extremities: Right digit 2 fingertip amputated proximal to the lunula. Extremities otherwise no tenderness, no cyanosis, no clubbing, ROM intact, no edema. Neurologic: Alert and oriented x4, no focal deficits noted. (IESHA VANG) Current Patient Data: Vital Signs: Vital Signs Date Time Temp Pulse Resp B/P (MAP) Pulse Ox O2 Delivery O2 Flow Rate FiO2 07/19/21 15:56 98.0 72 18 127/72 (90) 98 Room Air (IESHA VANG) Radiology/Procedures: Radiology/Procedures: PROCEDURE: FINGER(S) RIGHT Right index finger x-rays 3 views HISTORY: Laceration of the index finger. FINDINGS: On the lateral view there is overlapping of the fingers somewhat limiting visualization of the separate bony and soft tissues. In light of this there is an apparent laceration of the distal second finger with acute traumatic open fracture of the distal phalangeal trauma with avulsion and absence of the distal phalangeal tuft, presumably avulsed away from the finger and not on the images. No dislocation. 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 IMPRESSION: Acute traumatic open fracture with avulsion of the second digit distal phalangeal tuft. Electronically signed by: Trey Tyson MD (07/19/2021 4:14 PM) [facility] [place] DICTATED AND SIGNED BY: TREY TYSON MD DATE: 07/19/211610 (IESHA VANG) Heart Score: C/O Chest Pain: No (IESHA VANG) Course & Med Decision Making: Course & Med Decision Making Pertinent Labs and Imaging studies reviewed. (See chart for details) Patient is a 75-year-old male who presents with zone 3 fingertip amputation. Plain films ordered. Patient provided with tetanus vaccination update as well as p.o. hydrocodone. Plain films show digit 2 distal phalangeal tuft amputation. Dr. Swanson with plastic surgery at [facility] was consulted via phone. He advised oral antibiotic initiation, and he will see the patient for follow-up on July 21. The [facility] transfer center faxed over follow-up information for the patient. He is started on Levaquin here in the emergency department. All questions were answered. Return precautions were provided. Patient and his understand and are agreeable to discharge plan. (IESHA VANG) Dragon Disclaimer: Dragon Disclaimer: This electronic medical record was generated, in whole or in part, using a voice recognition dictation system. (IESHA VANG) Laceration Repair Lac Repair Indication: Fingertip amputation Procedure: The patient was placed in the appropriate position and anesthesia around the wound was 3 mL 2% lidocaine plain. The area was then irrigated copiously with sterile saline. The laceration was attempted to be approximated with 3 simple interrupted 4-0 nylon sutures. Full wound closure was not achievable, however the sutures provided pressure for hemostasis. The wound area was then dressed with gauze. Other Items: The patient tolerated the procedure very well. Complications: Insufficient tissue made edge approximation unachievable. (IESHA VANG) Departure Departure: Impression: Primary Impression: Traumatic amputation of fingertip Qualified Codes: S68.119A - Complete traumatic metacarpophalangeal amputation of unspecified finger, initial encounter Disposition: HOME / SELF CARE / HOMELESS Condition: IMPROVED Referrals: CHIDI ARAUJO MD (PCP) Patient Instructions: Fingertip Injuries and Amputations, Wound Care, [id number] Additional Instructions: EMERGENCY DEPARTMENT GENERAL DISCHARGE INSTRUCTIONS Thank you for coming to [facility] (ED) today and trusting us with you care. We trust that you had a positive experience in our Emergency Department. If you wish to speak to the department management, you may call the director at [phone]. YOUR FOLLOW UP INSTRUCTIONS ARE FOLLOWS: 1. Follow up with your primary care doctor. If you do not have a primary doctor, please ask for a resource list of physicians or clinics that may be able to assist you with follow up care. 2. The emergency provider has interpreted your imaging studies, if any were ordered. The radiology real estate specialist also reviewed them. If there is a change in the findings, you will be notified in 48 hours when at all possible. 3. If a lab test or culture has been done, your results will be reviewed and you will be notified if you need a change in treatment. 4. You will see Dr. Swanson at [facility] on Monday for further evaluation and management of your fingertip injury. Follow all instructions verbalized to you and refer to the printouts if needed. ADDITIONAL INSTRUCTIONS AND INFORMATION: 1. Your care today has been supervised by a physician who is specially trained in emergency care. Many problems require more than one evaluation for a complete diagnosis and treatment. We recommend that you schedule your follow up appointment as recommended to ensure complete treatment of you illness or injury. If you are unable to obtain follow up care and continue to have a problem, or if your condition worsens, we recommend that you return to the ED. 2. We are not able to safely determine your condition over the phone nor are we able to give sound medical advice over the phone. For these safety reasons, if you call for medical advice we will ask you to come to the ED for further evaluation. 3. If you have any questions regarding these discharge instructions please call the ED at [phone]. SAFETY INFORMATION: In the interest of safety, wellness, and injury prevention; we encourage you to wear your seat belt, if you smoke; quite smoking, and we encourage family to use a protective helmet for bicycling and other sporting events that present an increased risk for head injury. IF YOUR SYMPTOMS WORSEN OR NEW SYMPTOMS DEVELOP, OR YOU HAVE CONCERNS ABOUT YOUR CONDITION; OR IF YOUR CONDITION WORSENS WHILE YOU ARE WAITING FOR YOUR FOLLOW UP APPOINTMENT; EITHER CONTACT YOUR PRIMARY CARE DOCTOR, THE PHYSICIAN WHOSE NAME AND NUMBER YOU WERE GIVEN, OR RETURN TO THE ED IMMEDIATELY. Scripts Hydrocodone Bit/Acetaminophen (HYDROCODONE-APAP 5-325 ) 1 Each Tablet 1 TAB PO PRN Q6HRS PRN for PAIN, #10 TAB 0 Refills Prov: IESHA VANG 07/19/21 Levofloxacin (LEVOFLOXACIN) 500 Mg Tablet 1 TAB PO DAILY for fingertip amputation, #9 TAB Prov: IESHA VANG 07/19/21 Attending Signature Attending Signature I have reviewed the PA/TOOLMAN's note and plan of care. I was available for consultation as needed during the patient's visit in the emergency department. I agree with the clinical impression, plan, and disposition. (JANE RASHEED DO) IESHA VANG Jul 19, 2021 16:54 JANE RASHEED DO Jul 19, 2021 21:40
[2021-07-19] MEDS ORDERED: HYDROcodone/APAP 7.5/325MG 1 TAB TABLET PO ONE (17:00)
[2021-07-19] MEDS ORDERED: levoFLOXacin 500 MG TABLET PO ONE (17:45)
[2021-07-19] MEDS ORDERED: HYDR-2155 PO (17:58)
[2021-07-19] MEDS ORDERED: LEVO500T9 PO (17:58)
== END 2021-07-19 18:28 | disposition home or self-care (01) ==
LOC: ER 15:21
DX: S61.210A Laceration without foreign body of right index finger without damage to nail, initial encounter (principal); E11.9 Type 2 diabetes mellitus without complications; E78.00 Pure hypercholesterolemia, unspecified; I10 Essential (primary) hypertension; Z87.891 Personal history of nicotine dependence; Y28.8XXA Contact with other sharp object, undetermined intent, initial encounter; Y93.89 Activity, other specified; Y92.89 Other specified places as the place of occurrence of the external cause; Y99.8 Other external cause status
CPT/HCPCS: 12001; 73140; 90471; 90715; 99283; J2001